=== PATIENT | female | born 1965 | race Two or more races ===

== ENCOUNTER 2024-08-12 17:12 | Emergency (ER) | payer MEDICAID, OTHER ==
[~2024-08-12] VITALS: Ht 152.4 cm; Wt 81.4 kg
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
[2024-08-12] MEDS: HYDROcodone-ACET 5/325MG TAB PO ONE (18:51)
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
--- NOTE | 2024-08-12 19:10 | DVH ---
CLINICAL INDICATION: injury TECHNIQUE: 3 radiographic views of the left shoulder were obtained. Comparison: None FINDINGS/IMPRESSION: There is no evidence of acute fracture or dislocation. The visualized joint space is well maintained. The alignment is anatomical. There is no radiopaque foreign body.
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
--- NOTE | 2024-08-12 19:15 | DVH ---
CLINICAL INDICATION: injury TECHNIQUE: 3 radiographic views of the cervical spine were obtained. Comparison: None FINDINGS/IMPRESSION: 7 [id number] cervical type vertebra. Straightening of the cervical lordosis. The vertebral body heights are maintained. Limited evaluation of C6 and C7 on the lateral view. Otherwise, no evidence of acute traumatic fractures or spondylolisthesis. The dens is intact with the lateral masses of C1 and C2 properly aligned. Multilevel mild degenerative changes of the cervical spine. If symptoms pers ist, consider CT/ MRI for further evaluation.
[2024-08-12] MEDS ORDERED: CYCL-838 PO (19:28)
[2024-08-12] MEDS ORDERED: IBU600T PO (19:28)
[2024-08-12 23:29] VITALS: BP 126/64; PULSE 63; RESP 16; TEMP 98.9; O2SAT 96
--- NOTE | 2024-08-13 06:43 | ECG ---
[facility] Test Date: 2024-08-12 Test Time: 17:24:20 Pat Name: YOSEPH PIERCE Department: ER Room: Gender: F Loss Prevention Auditor: CED : 1965 Requested By: ALLISON SANTOS Order Number: [id number] Reading MD: Raghav Dubose Measurements Intervals [place] Rate: 86 P: 47 [place]: 122 QRS: 70 QRSD: 84 T: 21 QT: 373 QTc: 446 Interpretive Statements Sinus rhythm Borderline repolarization abnormality Electronically Signed On 08-15-2024 12:39:41 PST by Raghav Dubose Please click the below link to view image of tracing.
== END 2024-08-12 23:55 | disposition home or self-care (01) ==
LOC: ER 17:12 → EDBD 17:12 → ER 23:55
DX: S06.0X1A Concussion with loss of consciousness of 30 minutes or less, initial encounter (principal); S16.1XXA Strain of muscle, fascia and tendon at neck level, initial encounter; S30.1XXA Contusion of abdominal wall, initial encounter; M25.512 Pain in left shoulder; V43.62XA Car passenger injured in collision with other type car in traffic accident, initial encounter; Y93.89 Activity, other specified; Y92.410 Unspecified street and highway as the place of occurrence of the external cause; Y99.8 Other external cause status
CPT/HCPCS: 70450; 71045; 72040; 73030; 74176; 93005